=== PATIENT | female | born 1975 | race Caucasian/White ===

== ENCOUNTER 2023-06-06 06:27 | Day surgery (SDC) | payer OTHER ==
[2023-06-06] MEDS ORDERED: Lactated Ringers 1,000 ML IV SCH (06:30)
[2023-06-06] MEDS ORDERED: CEFAZOLIN 2 GM-D5W BAG** 2 GM/50 ML ML IV SCH (06:30)
[2023-06-06 06:44] LABS: HCG URINE TEST NEGATIVE (NEGATIVE)
[2023-06-06 07:00] VITALS: RESP 18
[2023-06-06] MEDS ORDERED: CEFAZOLIN 2 GM-D5W BAG** 2 GM/50 ML ML IV ONE (07:04)
[2023-06-06] MEDS ORDERED: Lactated Ringers 1,000 ML IV ONE (07:04)
[2023-06-06] MEDS ORDERED: Transderm Scop 1.5MG Patch TOP ONE (07:28)
[2023-06-06] MEDS ORDERED: Xylocaine-Mpf 2% 5 Ml Vial ONE (08:18)
[2023-06-06] MEDS ORDERED: Versed 2 MG/2 ML Injection ONE (08:18)
[2023-06-06] MEDS ORDERED: DIPRIVAN 200 MG/20 ML IV ONE (08:18)
[2023-06-06] MEDS ORDERED: Decadron 4 MG INJ ONE (08:24)
[2023-06-06] MEDS ORDERED: Zofran 4 MG/2 ML VIAL ONE (08:24)
[2023-06-06] MEDS ORDERED: SUBLIMAZE 100 MCG/2 ML ONE (08:27)
[2023-06-06] MEDS ORDERED: TORAdol 30 mg Injection ONE (08:53)
[2023-06-06 10:00] VITALS: TEMP 97.8
[2023-06-06 10:24] VITALS: O2SAT 98
[2023-06-06 10:28] VITALS: BP 124/84; PULSE 80
--- NOTE | 2023-06-07 09:19 | OP ---
SURGERY DATE/TIME: 06/06/2023 0827 PREOPERATIVE DIAGNOSIS: Abnormal uterine bleeding. POSTOPERATIVE DIAGNOSIS: Abnormal uterine bleeding. PROCEDURE: Hysteroscopy D&C with NovaSure ablation. SURGEON: Lars Marie D.O. PRODUCT STEWARD: Lizzeth Doe energy and conservation technician. ANESTHESIA: General. ESTIMATED BLOOD LOSS: Minimal. COMPLICATIONS: None. INDICATIONS: The risks, benefits, indications and alternatives of the procedure were reviewed with the patient prior to procedure. The patient understood the risk of infection, bleeding, bowel injury, bladder injury, uterine perforation, pelvic infection associated with this surgery and desires to have this surgery as a possible means to alleviate her current medical condition. DESCRIPTION OF PROCEDURE AND FINDINGS: At this point the patient is taken to the operating room, given general sedation, placed in dorsal lithotomy position, prepped and draped in the usual sterile fashion. A weighted speculum is then placed into the patient's vagina and the anterior lip of the cervix is grasped with a single tooth tenaculum. Endocervical dilators were advanced through the endocervical canal as a means to dilate the cervix and a 5 mm hysteroscope was then placed in through the fundus of the uterus where visualization appeared to be within normal limits with no gross abnormalities that were noted. From this point a curette was then placed into the fundus of the uterus and curettage was performed in all quadrants of the uterus retrieving a mild amount of tissue. At this point the NovaSure was then introduced to the endocervical region towards the fundal region retracted approximately 1 cm with a length of 6 cm and a width of 2.6 cm where it was engaged with an ablative time of 1 minute and 10 seconds. After complete ablation the instrument was disengaged and removed from the uterine cavity without complication. From this point all instruments were then removed from the patient's vaginal region. The patient was then taken out of the dorsal lithotomy position, was taken out of anesthesia and was then taken to the recovery room in stable condition. All instruments and laps were accounted for x2.
== END 2023-06-06 10:25 | disposition home or self-care (01) ==
LOC: SDC 06:27
PROVIDERS: ATTEND Obstetrics & Gynecology
DX: N93.9 Abnormal uterine and vaginal bleeding, unspecified (principal); E11.9 Type 2 diabetes mellitus without complications
CPT/HCPCS: 81025; 82947; J0690; J1100; J1885; J2250; J2405; J2704; J3010; A9270-GY